=== PATIENT | female | born 1975 | race Caucasian/White ===

== ENCOUNTER 2017-06-30 19:01 | Emergency (ER) | payer SELFPAY ==
[~2017-06-30] VITALS: Ht 157.5 cm; Wt 45.4 kg
[2017-06-30 19:35] LABS: BASO # 0.3 x10^3/uL (0.0-0.2); BASO % 5 % (0-3); EOS % 7 % (0-3); HEMATOCRIT 33.8 % (36.0-47.0); HEMOGLOBIN 10.5 g/dL (12.0-15.5); LYMPH # 1.4 x10^3/uL (1.0-4.8); LYMPH % 28 % (24-48); MEAN CORPUSCULAR HEMOGLOBIN 22 pg (25-35); MEAN CORPUSCULAR HGB CONC 31 g/dL (31-37); MEAN CORPUSCULAR VOLUME 70 fL (79-100); MONO % 11 % (0-9); NEUT % 48 % (31-73); PLATELET COUNT 283 x10^3/uL (140-400); RED BLOOD COUNT 4.85 x10^6/uL (3.50-5.40); RED CELL DISTRIBUTION WIDTH 16.4 % (11.5-14.5)
[2017-06-30 19:49] LABS: CALCIUM 8.3 mg/dL (8.5-10.1); CREATININE 0.8 mg/dL (0.6-1.0); GFR 79.4
[2017-06-30 19:54] LABS: ALBUMIN 3.1 g/dL (3.4-5.0); ALBUMIN/GLOBULIN RATIO 0.8 (1.0-1.7); TOTAL BILIRUBIN 0.1 mg/dL (0.2-1.0)
[2017-06-30 20:05] LABS: BILIRUBIN,URINE NEGATIVE (NEG); GLUCOSE,URINE NEGATIVE (NEG); NITRITE,URINE NEGATIVE (NEG); PROTEIN,URINE 30 mg/dL (NEG-TRACE); UROBILINOGEN,URINE 0.2 mg/dL (0.2 mg/dL)
[2017-06-30 20:16] LABS: BARBITURATES NEG (NEG); BENZODIAZEPINES NEG (NEG); CANNABINOIDS NEG (NEG); COCAINE NEG (NEG); METHADONE NEG (NEG); OPIATES POS (NEG); PHENCYCLIDINE NEG (NEG)
[2017-06-30 20:22] LABS: BACTERIA,URINE 0 /HPF (0-FEW); RBC,URINE 0 /HPF (0-2); SQUAMOUS EPITHELIAL CELL,UR MOD /LPF
--- NOTE | 2017-06-30 20:22 | PHYS DOC ---
Past Medical History Past Medical History: Other Additional Past Medical Histor: IV drug abuse. Respiratory arrest from heroin overdose. Past Surgical History: Other Additional Past Surgical Histo: hernia repair. Alcohol Use: None Drug Use: Heroin Adult General Chief Complaint Chief Complaint: OVERDOSE HPI HPI Patient is a 42 year old female who presents here today after cardiopulmonary resuscitation secondary to heroin overdose. Patient reports that she injected heroin earlier today and thinks that she overdid it. Per report from EMS the patient was noted to walk up the stairs and then collapsed and became unresponsive. EMS reports that she had CPR performed by family. Upon EMS arrival the patient received Narcan 2 mg IV with significant improvement in her respiratory status. Upon arrival of EMS mail technician who is currently here reports that she was breathing on her own speaking with a GCS of 15 upon arrival. Patient currently has no complaints. Patient denies any fevers shakes chills nausea vomiting diarrhea chest pain shortness of breath cough cold or runny nose. Patient is requesting to be released from the ED however after discussion with her regarding the risks and benefits she has agreed to stay for 2 hour period to be monitored. Review of systems: Constitutional: Denies fever or chills Eyes: Denies change in visual acuity, redness, or eye pain HENT: Denies nasal congestion or sore throat All other review systems are negative except as documented in the history of present illness portion. Physical exam: Constitutional: Well developed, well nourished, no acute distress, non-toxic appearance. HENT: Normocephalic, atraumatic, bilateral external ears normal, nose normal. Eyes: EOMI, conjunctiva normal, no discharge. Neck: Normal range of motion, no tenderness, supple, no stridor. Cardiovascular:Heart rate regular rhythm Lungs & Thorax: Bilateral breath sounds clear to auscultation no respiratory distress Abdomen: Bowel sounds normal, soft, no tenderness, no masses, no pulsatile masses. Skin: Warm, dry, no erythema, no rash. Back: No tenderness, no CVA tenderness. Extremities: No tenderness, no cyanosis, no clubbing, ROM intact, no edema. Neurologic: Alert and oriented X 3, normal motor function, normal sensory function, no focal deficits noted. Psychologic: Affect normal, judgement normal, mood normal. Assessment and plan Heroin overdose: Patient is clinically and hemodynamically stable this time. Patient presents with sinus symptoms consistent with heroin overdose. Patient currently is alert awake oriented 3 with a GCS of 15. Patient's pupils were equally round and reactive to light. Patient's pupil sizes were 3 mm bilaterally and equal. Patient's respiratory status is stable. Patient is for rate is approximately 18 at this time. Pulse ox 99% on room air. Patient currently not complaining of any nausea vomiting or any withdrawal type symptoms. I have discussed with the patient the option of detox and assistance she is currently declining assistance with detox and is requesting to be discharged from the ER. Patient's ER workup is been unremarkable. Patient's rest her sinuses been monitored for 2 hours he'll be discharged home in stable condition. Precautions were discussed with the patient regarding utilizing more heroin especially in light of having Narcan on board. Patient understands that there could be life ending consequences if she should continue to utilize heroin especially with the next 24 hours. Allergies Allergies Allergies Coded Allergies Type Severity Reaction Last Updated Verified Penicillins Allergy Intermediate 06/30/17 Yes Current Patient Data Vital Signs Vital Signs Date Time Temp Pulse Resp B/P (MAP) Pulse Ox O2 Delivery O2 Flow Rate FiO2 06/30/17 19:02 98.6 101 16 126/84 (98) 98 Room Air 98.6 Lab Values Laboratory Tests Test 06/30/17 19:09 06/30/17 19:43 White Blood Count 5.0 x10^3/uL (4.0-11.0) Red Blood Count 4.85 x10^6/uL (3.50-5.40) Hemoglobin 10.5 g/dL (12.0-15.5) L Hematocrit 33.8 % (36.0-47.0) L Mean Corpuscular Volume 70 fL (79-100) L Mean Corpuscular Hemoglobin 22 pg (25-35) L Mean Corpuscular Hemoglobin Concent 31 g/dL (31-37) Red Cell Distribution Width 16.4 % (11.5-14.5) H Platelet Count 283 x10^3/uL (140-400) Neutrophils (%) (Auto) 48 % (31-73) Lymphocytes (%) (Auto) 28 % (24-48) Monocytes (%) (Auto) 11 % (0-9) H Eosinophils (%) (Auto) 7 % (0-3) H Basophils (%) (Auto) 5 % (0-3) H Neutrophils # (Auto) 2.4 x10^3uL (1.8-7.7) Lymphocytes # (Auto) 1.4 x10^3/uL (1.0-4.8) Monocytes # (Auto) 0.6 x10^3/uL (0.0-1.1) Eosinophils # (Auto) 0.3 x10^3/uL (0.0-0.7) Basophils # (Auto) 0.3 x10^3/uL (0.0-0.2) H Platelet Estimate Adequate (ADEQUATE) Large Platelets Occ Polychromasia Slight Microcytosis Mod Ovalocytes Occ Sodium Level 142 mmol/L (136-145) Potassium Level 4.0 mmol/L (3.5-5.1) Chloride Level 105 mmol/L (98-107) Carbon Dioxide Level 32 mmol/L (21-32) Anion Gap 5 (6-14) L Blood Urea Nitrogen 8 mg/dL (7-20) Creatinine 0.8 mg/dL (0.6-1.0) Estimated GFR (Cockcroft-Gault) 79.4 BUN/Creatinine Ratio 10 (6-20) Glucose Level 86 mg/dL (70-99) Calcium Level 8.3 mg/dL (8.5-10.1) L Total Bilirubin 0.1 mg/dL (0.2-1.0) L Aspartate Amino Transferase (AST) 33 U/L (15-37) Alanine Aminotransferase (ALT) 40 U/L (14-59) Alkaline Phosphatase 83 U/L (46-116) Total Protein 7.0 g/dL (6.4-8.2) Albumin 3.1 g/dL (3.4-5.0) L Albumin/Globulin Ratio 0.8 (1.0-1.7) L Urine Color Yellow Urine Clarity Cloudy Urine pH 7.0 Urine Specific [place] 1.010 Urine Protein 30 mg/dL (NEG-TRACE) Urine Glucose (UA) Negative mg/dL (NEG) Urine Ketones (Stick) Negative mg/dL (NEG) Urine Blood Negative (NEG) Urine Nitrite Negative (NEG) Urine Bilirubin Negative (NEG) Urine Urobilinogen Dipstick 0.2 mg/dL (0.2 mg/dL) Urine Leukocyte Esterase Moderate (NEG) Urine RBC 0 /HPF (0-2) Urine WBC 5-10 /HPF (0-4) Urine Squamous Epithelial Cells Mod /LPF Urine Bacteria 0 /HPF (0-FEW) Urine Mucus Slight /LPF Urine Opiates Screen Pos (NEG) Urine Methadone Screen Neg (NEG) Urine Barbiturates Neg (NEG) Urine Phencyclidine Screen Neg (NEG) Urine Amphetamine/Methamphetamine Pos (NEG) Urine Benzodiazepines Screen Neg (NEG) Urine Cocaine Screen Neg (NEG) Urine Cannabinoids Screen Neg (NEG) Urine Ethyl Alcohol Neg (NEG) Laboratory Tests 06/30/17 19:09 Laboratory Tests 06/30/17 19:09 EKG EKG [] Radiology/Procedures Radiology/Procedures [] Course & Med Decision Making Course & Med Decision Making Pertinent Labs and Imaging studies reviewed. (See chart for details) [] Dragon Disclaimer Dragon Disclaimer This electronic medical record was generated, in whole or in part, using a voice recognition dictation system. Departure Departure Impression: Primary Impression: Respiratory failure Additional Impressions: Respiratory arrest Opiate overdose Methamphetamine use disorder, mild Disposition: 01 HOME, SELF-CARE Condition: STABLE Referrals: NO PCP (PCP) Patient Instructions: Narcotic Overdose Additional Instructions: Thank you for allowing us to participate in your care today. Followup with your primary care physician in 3 days if your symptoms do not improve. Call your Primary Doctor tomorrow and inform them of your visit today. If you do not have a primary care provider you can ask for a list of our primary care providers. Return to the emergency department you have any new or concerning findings. This should be evaluated by the primary care physician and any necessary consulting services for continued management within a few days after discharge. Return to emergency room if you have any new or concerning symptoms including but not limited to fever, chills, nausea, vomiting, intractable pain, any new rashes, chest pain, shortness of air, uncontrolled bleeding, difficulty breathing, and/or vision loss. You may have been prescribed medication that can change in your level of thinking and ability to operate machinery. These medications include hydrocodone and Ativan. Also, Benadryl has been known to do this as well. Be sure to check with your pharmacist and ask if the medications you've prescribed can affect your level of consciousness. I recommend not operating heavy machinery or driving while on medication such as these. Please do not use narcotics. If he would like assistance with detox please let us know. We can give you a list of referrals Problem Qualifiers HUNTER BANDA MD Jun 30, 2017 20:22
[2017-06-30 20:52] LABS: PLT ESTIMATE ADEQUATE (ADEQUATE); POLYCHROMASIA SLIGHT
[2017-06-30 20:53] LABS: MICROCYTOSIS MOD; OVALOCYTES OCC
[2017-06-30 21:00] VITALS: BP 126/83
--- NOTE | 2017-07-01 06:42 | EKG ---
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
== END 2017-06-30 21:20 | disposition home or self-care (01) ==
LOC: ER 19:01
DX: T40.1X1A Poisoning by heroin, accidental (unintentional), initial encounter (principal); R09.2 Respiratory arrest; F11.10 Opioid abuse, uncomplicated; F15.10 Other stimulant abuse, uncomplicated; Y92.89 Other specified places as the place of occurrence of the external cause
CPT/HCPCS: 36415; 80053; 80307; 81001; 85025; 87086; 93005; 99285-25; G0479